=== PATIENT | female | born 1970 | race Caucasian/White ===

== ENCOUNTER → 2017-05-13 | Outpatient (CLI) | payer OTHER ==
--- NOTE | 2017-05-13 11:18 | RADIOLOGY REPORT PS360 ---
EXAM: CERVICAL SPINE 4 OR 5 VIEWS HISTORY: LT ARM NUMBNESS ORDERING PHYSICIAN: Vikash Camacho MD PATIENT AGE: 47 years COMPARISON: None FINDINGS: There is slight reversal of cervical lordosis. Degenerative disc disease is present at C5-C6 and C6-C7 with decrease in the disc space and end plate osteophytes. Mild foraminal narrowing is present on the left at C5-C6. No fracture or dislocation. No lytic or blastic change. IMPRESSION: Mild cervical spondylosis with degenerative disc disease C5-C6 and C6-C7 and mild left foraminal narrowing at C5-C6
== END ==
LOC: RAD 10:35
DX: M54.2 Cervicalgia (principal); R20.0 Anesthesia of skin; R11.2 Nausea with vomiting, unspecified

== ENCOUNTER 2017-05-27 18:25 | Emergency (ER) | payer OTHER ==
[~2017-05-27] VITALS: Ht 160 cm; Wt 113.6 kg
--- NOTE | 2017-05-27 19:31 | Urgent Treatment Center Report ---
History of Present Issue Date/Time Seen by Provider 05/27/17 1908 Visit Reason Pt arrived:Walked Presenting Problem:PT C/O OF ABCESS OF TOOTH Location if Accident: Onset of symptoms date/time:05/27/1702/06/800 or onset unknown for: Have you (or family members/close friends) recently traveled outside the [place]? N If Yes, where/when: Have you had exposure to infectious disease within the past month? TB? Other? Specify: Patient state that she had a tooth that broke off earlier in the week State that today she noticed that she was starting to have some swelling in her right upper lip area around where the tooth was that broke. State that she called the dentist but noticed that tonight she was having a little more swelling so she decided to come and get some antibiotics so she could try to get this taken care of before her dentist appointment next week History Medical History General Angina: No [place]: No Hypertension? Yes Hyperlipidemia? No CHF? No COPD? No Asthma? No GERD? No Gastric ulcers? No GI Bleed? No Hernia? No Thyroid Problems? No Hypothyroidism? No CVA? No Seizures? No Diabetes? No UTI? No Stones? No BPH? No GB Disease: No Asplenia? No Hepatitis? No Sickle Cell Disease? No Migraines? No Cataracts? No Glaucoma? No MRSA? No HIV? No TB? No Anxiety? No Depression? No Cancer? No Immunization HX DT/Tetanus 5-10 Years Ago Surgical Hx Previous Surgery?N Social History Smoking Hx Smoker: Current Every Day Smoker Tobacco: Yes Type Cigarettes Packs/day < 1 Pack Alcohol Alcohol: No Review of Systems All Other Systems Reviewed and Negative ENT dental caries, loose teeth, missing teeth. Physical Exam Vital Signs Vital Signs Date Time Temp Pulse Resp B/P Pulse O2 O2 Flow FiO2 Ox Delivery Rate 05/27 1858 98.1 102 20 170/80 98 General Appearance normal appearance, no apparent distress Ear, Nose, Throat dental caries, Pain and mild swelling in right upper lip and jaw area where tooth is broken off at gum, gum red swollen Respiratory Status Yes: trachea midline, chest symmetrical, non tender chest. No: respiratory distress. Cardiovascular normal exam, regular rate/rhythm Neurologic alert, normal exam, oriented x 3 Medical Decision Making LABS/Meds/Orders Pt receiving controlled substance in ED? No Results/Orders Current Medication Orders Sig/Mg Start time Last Medication Dose Route Stop Time Status Admin Lidocaine HCl 0 .STK-MED ONE 05/27 1911 DC .ROUTE Progress [facility] Progress Notes Comment Patient state rebekah she took Motrin just prior to arrival Departure Departure Time of Disposition 1921 Disposition DC Home or Self Care(routine) Clinical Impression Primary Impression: Dental abscess Condition STABLE Referrals Dentist Doug GREEN,Vikash (Family): 3 Days-Call Office Patient Instructions DI for Dental Pain, Tooth Abscess Additional Instructions Take antibiotic as prescribed Follow up with Dentist as scheduled next week If you began to swell worse or jaw area worsens or you began to have streaks or run fever go straight to the ER Return if needed Discharge Counseling Counseled pt/family regarding diagnosis, medications/RX, home care, follow up needs Prescriptions Current Visit Scripts Amoxicillin/Potassium Clav (Augmentin 875-125 Tablet) 1 EACH PO BID #14 TAB Ibuprofen (Ibuprofen 800MG) 800 MG PO QIDP PRN pain #30 TAB at 1930
[2017-05-27 19:41] VITALS: BP 170/80
--- OUTSIDE RECORDS SUMMARY | 2017-06-03 10:05 | External Medical Summary Rpt | CCD ---
Author Author KRISTINE Address Unknown Phone [email or web address] Purpose Continuity of Care Document - through 2016
--- OUTSIDE RECORDS SUMMARY | 2017-06-03 10:05 | External Medical Summary Rpt | CCD ---
Author Author [employer] Organization [employer] Address Unknown Phone Unavailable Purpose Continuity of Care Document - through 2016
--- OUTSIDE RECORDS SUMMARY | 2017-06-03 10:05 | External Medical Summary Rpt | CCD ---
Author Author KRISTINE Address Unknown Phone [email or web address] Purpose Continuity of Care Document - through 2016
--- OUTSIDE RECORDS SUMMARY | 2017-06-03 10:05 | External Medical Summary Rpt | CCD ---
Demographics Preferred Language Citizen Of [place] Marital Status Unknown Orthodoxy Affiliation Unknown Race Unknown Ethnic Group Unknown Author Author , KRISTINE CARMONA Address Unknown Phone Immunization No patient found.
--- OUTSIDE RECORDS SUMMARY | 2017-06-03 10:05 | External Medical Summary Rpt ---
Author Author KRISTINE Garzon, [employer] Address Unknown Phone Unavailable
--- OUTSIDE RECORDS SUMMARY | 2017-06-03 10:05 | External Medical Summary Rpt | CCD ---
Demographics Preferred Language French Marital Status Unknown Confucianist Affiliation Unknown Race Unknown Ethnic Group Unknown Author Author , KRISTINE CARMONA Address Unknown Phone Immunization No patient found.
== END 2017-05-27 19:42 | disposition home or self-care (01) ==
LOC: UTC 18:25
DX: K04.7 Periapical abscess without sinus (principal); F17.210 Nicotine dependence, cigarettes, uncomplicated; K02.9 Dental caries, unspecified; I10 Essential (primary) hypertension